=== PATIENT | female | born 1985 | race Caucasian/White ===

== ENCOUNTER 2018-09-21 07:32 | Outpatient (CLI) | payer OTHER ==
[2018-09-21 09:39] LABS: UR BACTERIA FEW /HPF (NONE SEEN); UR MUCUS FEW /HPF (NONE SEEN); UR RBC 1 /HPF (0-5); UR SQUAMOUS EPITHELIAL CELL MANY /HPF (FEW); UR WBC 4 /HPF (0-5)
[2018-09-21 09:42] LABS: ADD MAN DIFF? NO
[2018-09-21 09:44] LABS: ADD UMIC YES; UR ASCORBIC ACID NEGATIVE (NEGATIVE); UR BILIRUBIN (Dip) NEGATIVE (NEGATIVE); UR BLOOD (Dip) NEGATIVE (NEGATIVE); UR CLARITY SLIGHTLY CLOUDY (CLEAR); UR COLOR YELLOW (YELLOW); UR GLUCOSE (Dip) NEGATIVE (NEGATIVE); UR KETONES (Dip) NEGATIVE (NEGATIVE); UR LEUKOCYTE ESTERASE (Dip) 1+ Leu/ul (NEGATIVE); UR NITRITE (Dip) NEGATIVE (NEGATIVE); UR SPECIFIC GRAVITY (Dip) 1.017 (1.003-1.030); UR TOTAL PROTEIN (Dip) NEGATIVE (NEGATIVE); UR UROBILINOGEN (Dip) NEGATIVE (NEGATIVE)
[2018-09-21 09:51] LABS: BASOPHIL # 0.1 10^3/ul (0.0-0.1); BASOPHILS % 0.5 % (0.0-2.0); EOSINOPHILS # 0.2 10^3/ul (0.0-0.5); EOSINOPHILS % 1.8 % (0.0-7.0); HEMATOCRIT 30.8 % (37.0-47.0); HEMOGLOBIN 10.1 g/dl (12.0-16.0); LYMPHOCYTES # 1.7 10^3/ul (0.8-2.9); LYMPHOCYTES % 17.9 % (15.0-51.0); MEAN CORPUSCULAR HEMOGLOBIN 30.9 pg (29.0-33.0); MEAN CORPUSCULAR HGB CONC 32.8 g/dl (32.0-37.0); MEAN CORPUSCULAR VOLUME 94.2 fl (82.0-101.0); MONOCYTE # 0.7 10^3/ul (0.3-0.9); MONOCYTES % 7.5 % (0.0-11.0); NEUTROPHIL # 6.8 10^3/ul (1.6-7.5); NEUTROPHILS % 70.9 % (39.0-77.0); PLATELET COUNT 292 10^3/UL (140-415); RED BLOOD COUNT 3.27 10^6/ul (4.20-5.40); RED CELL DISTRIBUTION WIDTH 13.1 % (11.5-14.5)
[2018-09-21 09:51] LABS: WHITE BLOOD COUNT 9.6 10^3/ul (4.8-10.8)
[2018-09-21] MEDS: TERBUTALINE 1 MG/ML INJ SC (10:49)
[2018-09-21] MEDS: LACTATED RINGER'S 1,000 ML IV (10:50)
[2018-09-21] MEDS ORDERED: LACTATED RINGER'S 1,000 ML IV (12:30)
== END 2018-09-21 12:50 | disposition home or self-care (01) ==
LOC: OBT 07:32 → L-D 07:34 → OBT 12:50
DX: O62.9 Abnormality of forces of labor, unspecified (principal); Z3A.28 28 weeks gestation of pregnancy
CPT/HCPCS: 76817; 76818; 81001; 85025; 87086

== ENCOUNTER 2018-11-07 15:39 | Outpatient (CLI) | payer OTHER, MEDICAID ==
[2018-11-07 19:55] LABS: ADD UMIC NO; UR ASCORBIC ACID NEGATIVE (NEGATIVE); UR BACTERIA FEW /HPF (NONE SEEN); UR BILIRUBIN (Dip) NEGATIVE (NEGATIVE); UR BLOOD (Dip) NEGATIVE (NEGATIVE); UR CLARITY SLIGHTLY CLOUDY (CLEAR); UR COLOR STRAW (YELLOW); UR GLUCOSE (Dip) NEGATIVE (NEGATIVE); UR KETONES (Dip) NEGATIVE (NEGATIVE); UR LEUKOCYTE ESTERASE (Dip) NEGATIVE Leu/ul (NEGATIVE); UR NITRITE (Dip) NEGATIVE (NEGATIVE); UR RBC 2 /HPF (0-5); UR SPECIFIC GRAVITY (Dip) 1.003 (1.003-1.030); UR SQUAMOUS EPITHELIAL CELL FEW /HPF (FEW); UR TOTAL PROTEIN (Dip) NEGATIVE (NEGATIVE); UR UROBILINOGEN (Dip) NEGATIVE (NEGATIVE); UR WBC 3 /HPF (0-5)
== END 2018-11-07 20:06 | disposition home or self-care (01) ==
LOC: OBT 15:39 → L-D 15:39 → OBT 20:06
DX: O36.8130 Decreased fetal movements, third trimester, not applicable or unspecified (principal); Z3A.34 34 weeks gestation of pregnancy
CPT/HCPCS: 76818; 81001; 81003

== ENCOUNTER 2018-11-28 11:26 | Outpatient (CLI) | payer OTHER, MEDICAID | END 2018-11-28 12:45 | disposition home or self-care (01) | LOC: OBT 11:26 → L-D 11:26 → OBT 12:45 | DX: O47.1 False labor at or after 37 completed weeks of gestation (principal); Z3A.37 37 weeks gestation of pregnancy | CPT/HCPCS: G0463 ==

== ENCOUNTER 2018-12-04 22:45 | Inpatient (IN) | payer OTHER, MEDICAID ==
[2018-12-04 23:38] LABS: ADD MAN DIFF? NO
[2018-12-04 23:43] LABS: ADD UMIC YES; UR ASCORBIC ACID NEGATIVE (NEGATIVE); UR BACTERIA FEW /HPF (NONE SEEN); UR BILIRUBIN (Dip) NEGATIVE (NEGATIVE); UR BLOOD (Dip) NEGATIVE (NEGATIVE); UR CLARITY CLEAR (CLEAR); UR COLOR YELLOW (YELLOW); UR GLUCOSE (Dip) NEGATIVE (NEGATIVE); UR KETONES (Dip) NEGATIVE (NEGATIVE); UR LEUKOCYTE ESTERASE (Dip) TRACE Leu/ul (NEGATIVE); UR NITRITE (Dip) NEGATIVE (NEGATIVE); UR RBC 2 /HPF (0-5); UR SPECIFIC GRAVITY (Dip) 1.006 (1.003-1.030); UR SQUAMOUS EPITHELIAL CELL FEW /HPF (FEW); UR TOTAL PROTEIN (Dip) NEGATIVE (NEGATIVE); UR UROBILINOGEN (Dip) NEGATIVE (NEGATIVE); UR WBC 3 /HPF (0-5)
[2018-12-04 23:45] LABS: WHITE BLOOD COUNT 8.4 10^3/ul (4.8-10.8)
[2018-12-04 23:45] LABS: BASOPHILS % 0.4 % (0.0-2.0); EOSINOPHILS # 0.1 10^3/ul (0.0-0.5); EOSINOPHILS % 1.1 % (0.0-7.0); HEMATOCRIT 33.3 % (37.0-47.0); HEMOGLOBIN 10.7 g/dl (12.0-16.0); LYMPHOCYTES # 2.5 10^3/ul (0.8-2.9); LYMPHOCYTES % 30.1 % (15.0-51.0); MEAN CORPUSCULAR HEMOGLOBIN 28.5 pg (29.0-33.0); MEAN CORPUSCULAR HGB CONC 32.1 g/dl (32.0-37.0); MEAN CORPUSCULAR VOLUME 88.8 fl (82.0-101.0); MEAN PLATELET VOLUME 10.7 fl (7.4-10.4); MONOCYTE # 0.5 10^3/ul (0.3-0.9); MONOCYTES % 6.3 % (0.0-11.0); NEUTROPHIL # 5.2 10^3/ul (1.6-7.5); NEUTROPHILS % 61.6 % (39.0-77.0); NUCLEATED RED BLOOD CELLS% 0.2 /100WBC (0.0-0.0); PLATELET COUNT 284 10^3/UL (140-415); RED BLOOD COUNT 3.75 10^6/ul (4.20-5.40); RED CELL DISTRIBUTION WIDTH 16.3 % (11.5-14.5)
[2018-12-05] MEDS ORDERED: MAGNESIUM SULFATE 20 GM/500 ML 500 ML IV ×2 (00:01→17:46)
[2018-12-05 00:04] LABS: INR 0.88; PT RATIO 0.9
[2018-12-05 00:04] LABS: URIC ACID 6.7 mg/dl (3.1-7.9)
[2018-12-05 00:05] LABS: ALANINE AMINOTRANSFERASE 20 IU/L (13-69); ALBUMIN 3.2 g/dl (3.3-4.9); ALBUMIN/GLOBULIN RATIO 0.86; ALKALINE PHOSPHATASE 153 IU/L (42-121); ANION GAP 8 (5-13); ASPARTATE AMINO TRANSFERASE 31 IU/L (15-46); BILIRUBIN,INDIRECT 0.4 mg/dl (0-1.1); BILIRUBIN,TOTAL 0.4 mg/dl (0.2-1.3); BLOOD UREA NITROGEN 14 mg/dl (7-20); CALCIUM 9.3 mg/dl (8.4-10.2); CARBON DIOXIDE 21 mmol/L (21-31); CHLORIDE 103 mmol/L (97-110); Estimated GFR > 60 mL/min (>60); GLUCOSE 84 mg/dl (70-220); PARTIAL THROMBOPLASTIN TIME 25.3 Sec (23.0-35.0); SODIUM 132 mmol/L (135-144); TOTAL PROTEIN 6.9 g/dl (6.1-8.1)
[2018-12-05] MEDS ORDERED: MISOPROSTOL 200 MCG TAB PR ×2 (00:30→20:30)
[2018-12-05] MEDS: MAGNESIUM SULFATE 4 GM/100 ML 100 ML IV (00:30)
[2018-12-05] MEDS ORDERED: METHYLERGONOVINE 0.2 MG INJ IM ×2 (00:30→20:30)
[2018-12-05] MEDS ORDERED: OXYTOCIN 30 UNITS/LR 500 ML IV ×2 (00:30→20:30)
[2018-12-05] MEDS ORDERED: CARBOPROST 250 MCG INJ IM ×2 (00:30→20:30)
[2018-12-05] MEDS: MAGNESIUM SULFATE 40GM/1000ML 1,000 ML IV ×2 (00:55→18:22)
[2018-12-05] MEDS: LACTATED RINGER'S 1,000 ML IV ×4 (02:43→11:18)
[2018-12-05] MEDS ORDERED: CEFAZOLIN 2 GM/50 ML (PMX) 50 ML IVPB (04:00)
[2018-12-05 07:10] LABS: MAGNESIUM 5.2 mg/dl (1.7-2.5)
[2018-12-05 12:45] LABS: MAGNESIUM 6.1 mg/dl (1.7-2.5)
[2018-12-05 15:36] LABS: RAPID PLASMA REAGIN NONREACTIVE (NR)
[2018-12-05] MEDS ORDERED: PHENYLephrine (100 MCG/ML) 10ML SYG (15:42)
[2018-12-05] MEDS ORDERED: morphine SULFATE/PF (10 MG/10 ML) INJ (15:42)
[2018-12-05] MEDS ORDERED: EPHEDrine 25 MG/5 ML SYG (15:42)
[2018-12-05] MEDS ORDERED: METOCLOPRAMIDE 10 MG INJ (16:09)
[2018-12-05] MEDS ORDERED: ONDANSETRON 4 MG INJ (16:09)
[2018-12-05] MEDS ORDERED: FENTAnyl 50 MCG/ML VIAL IV ×2 (16:30)
[2018-12-05] MEDS ORDERED: HYDROmorphONE 1 MG/5 ML IV SYRINGE IV ×2 (16:30)
[2018-12-05] MEDS ORDERED: METOCLOPRAMIDE 10 MG INJ IV (16:30)
[2018-12-05] MEDS ORDERED: ONDANSETRON 4 MG INJ IV ×2 (16:30)
[2018-12-05] MEDS ORDERED: KETOROLAC 30 MG INJ IV (16:30)
[2018-12-05] MEDS ORDERED: HYDROmorphONE 0.5 MG/0.5 ML SYG IV ×2 (16:30)
[2018-12-05] MEDS ORDERED: DIPHENHYDRAMINE 50 MG INJ IV ×2 (16:30)
[2018-12-05] MEDS ORDERED: NALOXONE (0.4 MG/ML) INJ IV (16:30)
[2018-12-05] MEDS ORDERED: ALBUTEROL 0.083% (NEB) 2.5 MG/3 ML AMP HHN (16:30)
[2018-12-05] MEDS: ACETAMINOPHEN 500 MG TAB PO (17:01)
[2018-12-05 18:37] LABS: MAGNESIUM 4.3 mg/dl (1.7-2.5)
[2018-12-05] MEDS: KETOROLAC 30 MG INJ IV (19:10)
[2018-12-05] MEDS: OXYTOCIN 30 UNITS/LR 500 ML IV (19:14)
[2018-12-05] MEDS: AZITHROMYCIN 500MG/NS (PMX) 250 ML IVPB (19:30)
[2018-12-05] MEDS ORDERED: LANOLIN HPA 1 PKT TOP (20:30)
[2018-12-05] MEDS ORDERED: HYDROCODONE/APAP (5/325) TAB PO (20:30)
[2018-12-05] MEDS: SENNA/DOCUSATE NA (8.6MG/50MG) TAB PO (21:00)
[2018-12-06] MEDS: CEFAZOLIN 2 GM/50 ML (PMX) 50 ML IVPB ×3 (01:05→17:55)
[2018-12-06] MEDS: MAGNESIUM SULFATE 40GM/1000ML 1,000 ML IV (01:08)
[2018-12-06] MEDS: LACTATED RINGER'S 1,000 ML IV ×3 (01:16→11:00)
[2018-12-06 01:43] LABS: MAGNESIUM 4.8 mg/dl (1.7-2.5)
[2018-12-06] MEDS: CLINDAMYCIN 300 MG CAP PO ×4 (06:00→17:55)
[2018-12-06] MEDS: KETOROLAC 30 MG INJ IV ×2 (06:21→15:00)
[2018-12-06 06:55] LABS: ADD MAN DIFF? NO
[2018-12-06 06:58] LABS: WHITE BLOOD COUNT 8.6 10^3/ul (4.8-10.8)
[2018-12-06 06:58] LABS: BASOPHILS % 0.3 % (0.0-2.0); EOSINOPHILS % 0.3 % (0.0-7.0); HEMATOCRIT 31.4 % (37.0-47.0); HEMOGLOBIN 9.9 g/dl (12.0-16.0); LYMPHOCYTES # 1.2 10^3/ul (0.8-2.9); LYMPHOCYTES % 14.4 % (15.0-51.0); MEAN CORPUSCULAR HEMOGLOBIN 28.4 pg (29.0-33.0); MEAN CORPUSCULAR HGB CONC 31.5 g/dl (32.0-37.0); MEAN CORPUSCULAR VOLUME 90.2 fl (82.0-101.0); MONOCYTE # 0.5 10^3/ul (0.3-0.9); MONOCYTES % 5.5 % (0.0-11.0); NEUTROPHIL # 6.8 10^3/ul (1.6-7.5); NEUTROPHILS % 79.3 % (39.0-77.0); PLATELET COUNT 229 10^3/UL (140-415); RED BLOOD COUNT 3.48 10^6/ul (4.20-5.40); RED CELL DISTRIBUTION WIDTH 16.7 % (11.5-14.5)
[2018-12-06 07:23] LABS: MAGNESIUM 4.5 mg/dl (1.7-2.5)
[2018-12-06] MEDS: SENNA/DOCUSATE NA (8.6MG/50MG) TAB PO ×2 (10:06→20:19)
[2018-12-06 12:48] LABS: MAGNESIUM 4.4 mg/dl (1.7-2.5)
[2018-12-06] MEDS: BISACODYL 10 MG SUPP PR (17:55)
[2018-12-06] MEDS: OXYCODONE/ACETAMINOPHEN (5/325) TAB PO (20:19)
[2018-12-06] MEDS: IBUPROFEN 800 MG TAB PO (22:00)
[2018-12-07] MEDS: IBUPROFEN 800 MG TAB PO ×3 (05:12→21:46)
[2018-12-07] MEDS: CLINDAMYCIN 300 MG CAP PO ×4 (05:12→18:17)
[2018-12-07] MEDS: LACTATED RINGER'S 1,000 ML IV ×2 (07:00→18:41)
[2018-12-07] MEDS: SENNA/DOCUSATE NA (8.6MG/50MG) TAB PO ×2 (10:03→21:46)
[2018-12-07] MEDS ORDERED: ACETAMINOPHEN 325 MG TAB PO (17:30)
[2018-12-08] MEDS: CLINDAMYCIN 300 MG CAP PO ×2 (00:08→05:42)
[2018-12-08] MEDS: NA PHOSPHATE/BIPHOS 133 ML ENEMA PR (05:06)
[2018-12-08] MEDS: IBUPROFEN 800 MG TAB PO (05:42)
[2018-12-08] MEDS: MEASLES,MUMPS,RUBELLA VACCINE INJ SC* (09:00)
[2018-12-08] MEDS: SENNA/DOCUSATE NA (8.6MG/50MG) TAB PO (09:00)
[2018-12-08] MEDS: DIPHTH/TET/ACEL PERTUSS (ADULT) 0.5 ML VIAL IM* (09:24)
== END 2018-12-08 13:05 | disposition home or self-care (01) | DRG 788 ==
LOC: OBT 22:45 → L-D 22:46 → PP1 12-05 20:48
PROC: 10D00Z1 Extraction of Products of Conception, Low, Open Approach (ICD-10-PCS; principal; 2018-12-05 16:45)
DX: O13.3 Gestational [pregnancy-induced] hypertension without significant proteinuria, third trimester (principal); Z3A.38 38 weeks gestation of pregnancy; Z37.0 Single live birth; O34.211 Maternal care for low transverse scar from previous cesarean delivery
CPT/HCPCS: 80053; 81001; 83735; 84560; 85025; 85610; 85730; 86592; 86850; 86900; 86901; 99464